=== PATIENT | female | born 1965 | race Caucasian/White ===

== ENCOUNTER 2017-01-29 12:56 | Inpatient (IN) | payer MEDICAID ==
[~2017-01-29] VITALS: Ht 142.2 cm; Wt 57.3 kg
[~2017-01-29 12:56] MED LIST: ACCUNEB DP0.63 MG/3 IH; ADVAIR DIS1 PUFF/DO2 IH; ATROVENT SOLN.2.5 ML IH; DELTASONE DPS20 MG PO; DUONEB DPS3 ML IH; KLOR-CON M2020 ME1 PO; LASIX DPS20 MG PO; MONTELUKAST SOD10 MG PO; MOTRIN-DPS800 MG PO; PEPCID DPS20 MG PO; TYLENOL DPS325 MG PO; VIBRAMYCIN-DPS100 M2 PO; ZESTRIL DPS10 MG PO; ZITHROMAX250 MG PO
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
[2017-02-01] MEDS ORDERED: NASAL SPRAY30 M1 NS (19:32)
[2017-02-01] MEDS ORDERED: BACTROBAN OINT.22 GM TP (19:32)
[2017-02-01] MEDS ORDERED: DELTASONE DPS1 MG (19:33)
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
== END 2017-01-31 14:30 | disposition home or self-care (01) | DRG 935 ==
LOC: ER 12:56 → 4PCU 15:40
PROVIDERS: ADMIT Internal Medicine
DX: T20.24XA Burn of second degree of nose (septum), initial encounter (principal); J96.10 Chronic respiratory failure, unspecified whether with hypoxia or hypercapnia; I10 Essential (primary) hypertension; T20.20XA Burn of second degree of head, face, and neck, unspecified site, initial encounter; T23.001A Burn of unspecified degree of right hand, unspecified site, initial encounter; Y65.8 Other specified misadventures during surgical and medical care; Y74.1 Therapeutic (nonsurgical) and rehabilitative general hospital and personal-use devices associated with adverse incidents; Y92.029 Unspecified place in mobile home as the place of occurrence of the external cause; J44.9 Chronic obstructive pulmonary disease, unspecified; F17.210 Nicotine dependence, cigarettes, uncomplicated; M54.5 Low back pain; G89.29 Other chronic pain; Z91.19 Patient's noncompliance with other medical treatment and regimen